=== PATIENT | male | born 1980 | race Caucasian/White ===

== ENCOUNTER 2018-03-20 02:04 | Emergency (ER) | payer SELFPAY ==
[2018-03-20] MEDS ORDERED: Benzocaine 20% Topical Spray UD MUCMEM ONE ×2 (02:42→02:44)
--- NOTE | 2018-03-20 03:20 | EDM.PDOC ---
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 Past medical history: As per history of present illness and as reviewed below otherwise noncontributory. Surgical history: As per history of present illness and as reviewed below otherwise noncontributory. Social history: No reported history of drug or alcohol abuse. Family history: As per history of present illness and as reviewed below otherwise noncontributory. Physical exam: HEENT: Atraumatic, normocephalic, pupils reactive, negative for conjunctival pallor or scleral icterus, mucous membranes moist, throat clear, neck supple, nontender, trachea midline. Right ear is clear left has a large insect winged insect inside the ear canal which is alive at present does not look like a biting insect Lungs: Clear to auscultation, breath sounds equal bilaterally, chest nontender. Heart: S1S2, regular, negative for clicks, rubs, or JVD. Abdomen: Soft, nondistended, nontender. Negative for masses or hepatosplenomegaly. Negative for costovertebral tenderness. Pelvis: Stable nontender. Genitourinary: Deferred. Rectal: Deferred. Extremities: Atraumatic, negative for cords or calf pain. Neurovascular unremarkable. Neuro: Awake, alert, oriented. Cranial nerves II through XII unremarkable. Cerebellum unremarkable. Motor and sensory unremarkable throughout. Exam nonfocal. Diagnostics: Clinical Therapeutics: [Removed with alligator forceps] Impression: [Insect removal left ear canal] Definitive disposition and diagnosis as appropriate pending reevaluation and review of above. Left Ear Pain Score (Numeric/FACES): 8 - Related Data Allergies Allergy/AdvReac Type Severity Reaction Status Date / Time No Known Allergies Allergy Verified 03/20/18 02:16 Home Meds: Home Meds . [No Known Home Meds] 03/20/18 [History] Past Medical History - Past Health History Medical/Surgical History: Denies Medical/Surgical History Social & Family History - Tobacco Use Years of Tobacco use: 10 Packs/Tins Daily: 0.5 ED ROS GENERAL - Review of Systems Review Of Systems: See Below ED EXAM, GENERAL - Physical Exam Exam: See Below Course - Vital Signs Last Recorded V/S: Last Vital Signs Temp 97.7 F 03/20/18 02:13 Pulse 101 H 03/20/18 02:13 Resp 22 H 03/20/18 02:13 BP 153/81 H 03/20/18 02:13 Pulse Ox 97 03/20/18 02:13 - Orders/Labs/Meds Meds: Medications Discontinued Medications Generic Name Dose Route Start Last Admin Trade Name Freq PRN Reason Stop Dose Admin Benzocaine 1 each 03/20/18 02:42 03/20/18 02:50 Hurricaine One 20% MUCMEM 03/20/18 02:43 1 each ONETIME ONE Administration Benzocaine Confirm 03/20/18 02:44 03/20/18 02:49 Hurricaine One 20% Administered 03/20/18 02:45 Not Given Dose 1 each MUCMEM .STK-MED ONE Departure - Departure Time of Disposition: 03:19 Disposition: Home, Self-Care 01 Condition: Good Clinical Impression: Foreign body in ear - Discharge Information Referrals: PCP,None [Primary Care Provider] - Additional Instructions: The following information is given to patients seen in the emergency department who are being discharged to home. This information is to outline your options for follow-up care. We provide all patients seen in our emergency department with a follow-up referral. The need for follow-up, as well as the timing and circumstances, are variable depending upon the specifics of your emergency department visit. If you don't have a primary care physician on staff, we will provide you with a referral. We always advise you to contact your personal physician following an emergency department visit to inform them of the circumstance of the visit and for follow-up with them and/or the need for any referrals to a consulting specialist. The emergency department will also refer you to a specialist when appropriate. This referral assures that you have the opportunity for follow-up care with a specialist. All of these measure are taken in an effort to provide you with optimal care, which includes your follow-up. Under all circumstances we always encourage you to contact your private physician who remains a resource for coordinating your care. When calling for follow-up care, please make the office aware that this follow-up is from your recent emergency room visit. If for any reason you are refused follow-up, please contact the [facility] emergency department at and asked to speak to the emergency department charge nurse.
== END 2018-03-20 03:25 | disposition home or self-care (01) ==
LOC: MW.ED 02:04
DX: T16.2XXA Foreign body in left ear, initial encounter (principal); X58.XXXA Exposure to other specified factors, initial encounter
CPT/HCPCS: 99282; A9270; 69200